=== PATIENT | male | born 1980 | race Caucasian/White ===

== ENCOUNTER 2016-12-17 20:58 | Emergency (ER) | payer MEDICAID ==
[~2016-12-17] VITALS: Ht 188 cm; Wt 97.5 kg
[2016-12-17 21:42] LABS: HEMOGLOBIN 15.4 g/dL (14.1-18.0); LYMPH # 1.3 K/mm3 (0.7-4.5); LYMPH % 13.3 % (10-50)
[2016-12-17 21:44] LABS: URINE BILIRUBIN - DIPSTICK NEGATIVE (NEG); URINE BLOOD NEGATIVE (NEG)
[2016-12-17 21:46] LABS: URINE SQUAMOUS CELLS OCC #/hpf (OCC)
[2016-12-17 22:09] LABS: BUN 9 mg/dL (7-18); GFR (ESTIMATED) 85 ML/MIN (>60)
--- NOTE | 2016-12-17 22:52 | Emergency Room Report ---
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 N Clinical Suspician of Infection? N Mental Status: 1 - Regular (Normal Baseline) Sepsis Risk:Low Sepsis Risk Have you (or family members/close friends) recently traveled outside the [place]? N If Yes, where/when: Have you had exposure to infectious disease within the past month? N TB? Other? Specify: Source patient, RN notes reviewed, family, old records Exam Limitations no limitations Comment pt with lt side flank pain to lt thoracic region intermitt over the last few yrs with acute episode tonight - no fever/hemoptysis/b/b or jt pain and no rash or trauma Cardiac Chest Pain Chest pain indicative of cardiac No Timing/Duration this evening Severity moderate ALLERGIES Coded Allergies: Penicillins (12/17/16) acetaminophen (From TYLENOL) (I-RASH 12/17/16) aspirin (SWELLING OF THROAT 12/17/16) History Medical History General CAD? No Angina: No [place]: No Hypertension? No Hyperlipidemia? No CHF? No DVT? No PE? No COPD? No Asthma? No Anemia? No GERD? No Gastric ulcers? No GI Bleed? No Hernia? No Thyroid Problems? No Hypothyroidism? No CVA? Yes Seizures? No Diabetes? No End Stage Renal Disease? No UTI? No Stones? No BPH? No GB Disease: No Nephritic Syndrome? No Asplenia? No Hepatitis? No Sickle Cell Disease? No Arthritis? No Migraines? No Cataracts? No Glaucoma? No MRSA? No HIV? No TB? No Anxiety? No Depression? No Cancer? No Immunization Hx DT/Tetanus 1-4 Years Ago Surgical Hx Previous Surgery?N Social History Smoking Hx Smoker: Former Smoker Tobacco: No Alcohol Alcohol: No Drugs none Review of Systems All Other Systems Reviewed and Negative Constitutional denies fever Eyes denies drainage ENT denies: ear discharge, epistaxis, throat pain. Respiratory denies cough, denies shortness of breath, denies wheezing Cardiovascular denies chest pain, denies palpitations, denies syncope Gastrointestinal see HPI, denies abdominal pain, nausea, denies vomiting Genitourinary see HPI. denies: dysuria, frequency, hesitancy, hematuria, scrotal/testicular pain. Musculoskeletal denies back pain, denies joint pain, denies joint swelling, denies neck pain Skin denies rash Psychiatric/Neurological denies headache, denies seizure Physical Exam Vital Signs Vital Signs Date Time Temp Pulse Resp B/P Pulse O2 O2 Flow FiO2 Ox Delivery Rate 12/17 2206 97.8 68 18 146/92 96 12/17 2101 98.2 78 20 145/98 97 - WBC >12,000 or <4,000 or 10% bands? 2 or more SIRS Criteria Met? B/P:146/92 MAP:113 Creatinine >2.0? UA output<0.5ml/kg/hr for 2 hrs? Platelet count >100,000? Lactate >2.0mmol/1? INR >1.2 or PTT > than 60 sec? Evidence of Organ Dysfunction? Provider documented clinical suspician of infection? N Sepsis Criteria Count: 1 Sepsis Risk: Low Sepsis Risk General Appearance no apparent distress Eye Exam - bilateral eye PERRL, bilateral eye EOMI Ear, Nose, Throat normal ENT inspection Neck supple Respiratory Status No: respiratory distress. Lung Sounds bilateral: lungs clear. 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 No Results/Orders Laboratory Tests 12/17/162137: Urine Color YELLOW, Urine Appearance CLEAR, Urine pH 6.0, Ur Specific [place] 1.010, Urine Protein NEGATIVE, Urine Ketones NEGATIVE, Urine Blood NEGATIVE, Urine Nitrate NEGATIVE, Urine Bilirubin NEGATIVE, Urine Urobilinogen 0.2, Ur Leukocyte Esterase TRACE H, Urine WBC 5-10, Ur Squamous Epith Cells OCC, Amorphous Sediment TRACE, Urine Glucose NEGATIVE 12/17/162129: ESR Pending 12/17/162129: Sodium 142, Potassium 3.6, Chloride 107, Carbon Dioxide 29, BUN 9, Creatinine 1.0, Estimated Creat Clear 141, Estimated GFR (MDRD) 85, Glucose 132 H, Calcium 9.0, Total Bilirubin 0.7, AST 78 H, ALT 65, Alkaline Phosphatase 103, Creatine Kinase 75, CK-MB (CK-2) Rel Index 0.7, CK and CKMB Interp < 0.5, Troponin I < 0.02, Total Protein 7.6, Albumin 3.9, Globulin 3.7 H, Albumin/Globulin Ratio 1.1, Amylase 49, Lipase 159, WBC 9.5, RBC 4.83, Hgb 15.4, Hct 44.6, MCV 92.4, RDW 12.8, Plt Count 227, MPV 7.5, Gran % 80.1 H, Gran # 7.6, Lymphocytes % 13.3 , Monocytes % 4.2, Eosinophils % 2.1, Basophils % 0.3, Lymphocytes # 1.3, Monocytes # 0.4, Eosinophils # 0.2, Basophils # 0.0, PUBS MCHC 34.5, MCH 31.9 H Current Medication Orders Sig/John Start time Last Medication Dose Route Stop Time Status Admin Sodium Chloride 10 ML PRN PRN 12/17 2114 AC IV 12/18 2110 Orders Procedure Date/time Status DIET-NOTHING BY MOUTH 12/18 B Active SED RATE 12/17 2252 Active ELECTROCARDIOGRAM REQUEST 12/[address] ABD & PELVIS W/O CONTRAST 12/[address] ABD/PELVIS REQ 12/18 2111 Complete CHEST(2 VIEWS-NOT PORTABLE) 12/18 2111 Active IV SALINE LOCK 12/18 2111 Active URINALYSIS/COMPLETE 12/18 2111 Complete LIPASE 12/18 2111 Complete CBC WITH AUTO DIFF 12/18 2111 Complete CARDIAC ENZYMES 12/18 2111 Complete CHEM 12 PROFILE 12/18 2111 Complete AMYLASE 12/18 2111 [facility]17 UNK Active 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 of ischemic chgs XRAY/CT/US XRAY/CT/US 1 CT abdomen, pelvis CT interpretation by discussed w/radiologist Time results known: 2250 CT Results abnormal (see report) XRAY/CT/US 2 XRAY chest XR interpretation by reviewed by me Xray Results normal/NAD Departure Departure Time of Disposition 2250 Disposition DC Home or Self Care(routine) Clinical Impression Primary Impression: Flank pain, acute Secondary Impressions: Pulmonary nodule, left Condition STABLE Patient Instructions DI for Pulmonary Nodule Additional Instructions please see pcp for more tests and eval Discharge Counseling Counseled pt/family regarding diagnosis, test results, follow up needs ED Critical Care Critical Care No at [phone]
--- NOTE | 2016-12-17 22:52 | Emergency Room Report ---
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 N Clinical Suspician of Infection? N Mental Status: 1 - Regular (Normal Baseline) Sepsis Risk:Low Sepsis Risk Have you (or family members/close friends) recently traveled outside the [place]? N If Yes, where/when: Have you had exposure to infectious disease within the past month? N TB? Other? Specify: Source patient, RN notes reviewed, family, old records Exam Limitations no limitations Comment pt with lt side flank pain to lt thoracic region intermitt over the last few yrs with acute episode tonight - no fever/hemoptysis/b/b or jt pain and no rash or trauma Cardiac Chest Pain Chest pain indicative of cardiac No Timing/Duration this evening Severity moderate ALLERGIES Coded Allergies: Penicillins (12/17/16) acetaminophen (From TYLENOL) (I-RASH 12/17/16) aspirin (SWELLING OF THROAT 12/17/16) History Medical History General CAD? No Angina: No [place]: No Hypertension? No Hyperlipidemia? No CHF? No DVT? No PE? No COPD? No Asthma? No Anemia? No GERD? No Gastric ulcers? No GI Bleed? No Hernia? No Thyroid Problems? No Hypothyroidism? No CVA? Yes Seizures? No Diabetes? No End Stage Renal Disease? No UTI? No Stones? No BPH? No GB Disease: No Nephritic Syndrome? No Asplenia? No Hepatitis? No Sickle Cell Disease? No Arthritis? No Migraines? No Cataracts? No Glaucoma? No MRSA? No HIV? No TB? No Anxiety? No Depression? No Cancer? No Immunization Hx DT/Tetanus 1-4 Years Ago Surgical Hx Previous Surgery?N Social History Smoking Hx Smoker: Former Smoker Tobacco: No Alcohol Alcohol: No Drugs none Review of Systems All Other Systems Reviewed and Negative Constitutional denies fever Eyes denies drainage ENT denies: ear discharge, epistaxis, throat pain. Respiratory denies cough, denies shortness of breath, denies wheezing Cardiovascular denies chest pain, denies palpitations, denies syncope Gastrointestinal see HPI, denies abdominal pain, nausea, denies vomiting Genitourinary see HPI. denies: dysuria, frequency, hesitancy, hematuria, scrotal/testicular pain. Musculoskeletal denies back pain, denies joint pain, denies joint swelling, denies neck pain Skin denies rash Psychiatric/Neurological denies headache, denies seizure Physical Exam Vital Signs Vital Signs Date Time Temp Pulse Resp B/P Pulse O2 O2 Flow FiO2 Ox Delivery Rate 12/17 2206 97.8 68 18 146/92 96 12/17 2101 98.2 78 20 145/98 97 - WBC >12,000 or <4,000 or 10% bands? 2 or more SIRS Criteria Met? B/P:146/92 MAP:113 Creatinine >2.0? UA output<0.5ml/kg/hr for 2 hrs? Platelet count >100,000? Lactate >2.0mmol/1? INR >1.2 or PTT > than 60 sec? Evidence of Organ Dysfunction? Provider documented clinical suspician of infection? N Sepsis Criteria Count: 1 Sepsis Risk: Low Sepsis Risk General Appearance no apparent distress Eye Exam - bilateral eye PERRL, bilateral eye EOMI Ear, Nose, Throat normal ENT inspection Neck supple Respiratory Status No: respiratory distress. Lung Sounds bilateral: lungs clear. 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 No Results/Orders Laboratory Tests 12/17/162137: Urine Color YELLOW, Urine Appearance CLEAR, Urine pH 6.0, Ur Specific [place] 1.010, Urine Protein NEGATIVE, Urine Ketones NEGATIVE, Urine Blood NEGATIVE, Urine Nitrate NEGATIVE, Urine Bilirubin NEGATIVE, Urine Urobilinogen 0.2, Ur Leukocyte Esterase TRACE H, Urine WBC 5-10, Ur Squamous Epith Cells OCC, Amorphous Sediment TRACE, Urine Glucose NEGATIVE 12/17/162129: ESR Pending 12/17/162129: Sodium 142, Potassium 3.6, Chloride 107, Carbon Dioxide 29, BUN 9, Creatinine 1.0, Estimated Creat Clear 141, Estimated GFR (MDRD) 85, Glucose 132 H, Calcium 9.0, Total Bilirubin 0.7, AST 78 H, ALT 65, Alkaline Phosphatase 103, Creatine Kinase 75, CK-MB (CK-2) Rel Index 0.7, CK and CKMB Interp < 0.5, Troponin I < 0.02, Total Protein 7.6, Albumin 3.9, Globulin 3.7 H, Albumin/Globulin Ratio 1.1, Amylase 49, Lipase 159, WBC 9.5, RBC 4.83, Hgb 15.4, Hct 44.6, MCV 92.4, RDW 12.8, Plt Count 227, MPV 7.5, Gran % 80.1 H, Gran # 7.6, Lymphocytes % 13.3 , Monocytes % 4.2, Eosinophils % 2.1, Basophils % 0.3, Lymphocytes # 1.3, Monocytes # 0.4, Eosinophils # 0.2, Basophils # 0.0, PUBS MCHC 34.5, MCH 31.9 H Current Medication Orders Sig/John Start time Last Medication Dose Route Stop Time Status Admin Sodium Chloride 10 ML PRN PRN 12/17 2114 AC IV 12/18 2110 Orders Procedure Date/time Status DIET-NOTHING BY MOUTH 12/18 B Active SED RATE 12/17 2252 Active ELECTROCARDIOGRAM REQUEST 12/[address] ABD & PELVIS W/O CONTRAST 12/[address] ABD/PELVIS REQ 12/18 2111 Complete CHEST(2 VIEWS-NOT PORTABLE) 12/18 2111 Active IV SALINE LOCK 12/18 2111 Active URINALYSIS/COMPLETE 12/18 2111 Complete LIPASE 12/18 2111 Complete CBC WITH AUTO DIFF 12/18 2111 Complete CARDIAC ENZYMES 12/18 2111 Complete CHEM 12 PROFILE 12/18 2111 Complete AMYLASE 12/18 2111 Complete [facility]17 UNK Active 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 of ischemic chgs XRAY/CT/US XRAY/CT/US 1 CT abdomen, pelvis CT interpretation by discussed w/radiologist Time results known: 2250 CT Results abnormal (see report) XRAY/CT/US 2 XRAY chest XR interpretation by reviewed by me Xray Results normal/NAD Departure Departure Time of Disposition 2250 Disposition DC Home or Self Care(routine) Clinical Impression Primary Impression: Flank pain, acute Secondary Impressions: Pulmonary nodule, left Condition STABLE Patient Instructions DI for Pulmonary Nodule Additional Instructions please see pcp for more tests and eval Discharge Counseling Counseled pt/family regarding diagnosis, test results, follow up needs ED Critical Care Critical Care No at [phone]
[2016-12-17 23:07] VITALS: BP 136/90
--- NOTE | 2016-12-17 23:59 | RADIOLOGY REPORT PS360 ---
CHEST(2 VIEWS-NOT PORTABLE) HISTORY: C/O LEFT FLANK/CHEST PAIN Patient Age: 36 years: Male Ordering Physician: Chiqui Bradley MD TECHNIQUE: PA and lateral chest COMPARISON :No prior chest films. None available FINDINGS: The lungs are well expanded and clear with nothing definite acute. Borderline cardiomegaly. [place] and mediastinal structures otherwise unremarkable. No pleural effusion. T-spine & ribs intact. IMPRESSION: Lungs clear no active disease
--- NOTE | 2016-12-18 00:13 | RADIOLOGY REPORT PS360 ---
CT ABD PELVIS W/O CONTRAST HISTORY: PAIN Patient Age: 36 years: Male Ordering Physician: Chiqui Bradley MD TECHNIQUE: Helical CT scanning through abdomen and pelvis. No oral nor IV contrast COMPARISON :None available FINDINGS Lung bases. No acute findings.. Heart normal size There is a round Pulmonary nodule anteriorly left upper lobe./At [place] .... This peripheral 7.2 mm noncalcified nodule warrantsFollow-up in CT chest 6-9 months Abdomen Pelvis. Lack of oral and IV contrast decreases sensitivity. Liver, spleen, pancreas and adrenals unremarkable. Gallbladder. Partially contracted no calcified stones. No biliary ductal dilatation. No retroperitoneal adenopathy. Aorta normal caliber. Kidneys. No urinary tract calculi or obstruction. Ureters normal in course and caliber. There appears to be diffuse wall thickening of urinary bladder but this may be exaggerated by its contracted state. Requires correlation with urinalysis. GI Tract. There is generous stool at the rectum and minimal stool throughout the colon with only mild stool at the right colon. No wall thickening. No bowel dilatation or obstruction. Small bowel unremarkable. Appendix normal. Terminal ileum satisfactory. No mesenteric or retroperitoneal adenopathy. At the upper abdomen there is a moderately distended food filled stomach, with likely food filled mildly distended duodenal bulb. Linear undigested material at the distal stomach and duodenum. ... Duodenal loop otherwise unremarkable. Proximal small bowel unremarkable. Osseous. No osseous lesions. Intact. Minor observations included Mild disc space narrowing with scant retrolisthesis and mild disc bulge L3/4 noted. Mild spondylotic bulge L4/5 4/5 with mild foraminal encroachment. IMPRESSION..... 1. No acute findings abdomen or pelvis. No findings to account for the patient's left-sided abdominal pain 2. Food filled mildly distended stomach otherwise unremarkable small bowel & large bowel. Upper normal wall thickness left colon most likely reflecting lack of distention. 3.. Generous wall thickness at the urinary bladder may reflect lack of distention. But Warrants correlation with urinalysis to exclude UTI 4.*Pulmonary nodule anteriorly left upper lobe./[place] warrants follow-up. This peripheral 7.2 mm noncalcified nodule warrantsFollow-up in CT chest 6-9 months.
== END 2016-12-17 23:07 | disposition home or self-care (01) ==
LOC: ER 20:58
PROVIDERS: Emergency Medicine
DX: R10.9 Unspecified abdominal pain (principal); R91.1 Solitary pulmonary nodule; Z87.891 Personal history of nicotine dependence

== ENCOUNTER 2017-02-13 10:16 | Emergency (ER) | payer MEDICAID ==
[~2017-02-13] VITALS: Ht 188 cm; Wt 97.5 kg
[2017-02-13 10:32] LABS: HEMOGLOBIN 15.4 g/dL (14.1-18.0); LYMPH # 1.6 K/mm3 (0.7-4.5); LYMPH % 27.9 % (10-50)
--- NOTE | 2017-02-13 10:45 | Emergency Room Report ---
See Addendum History of Present Illness Time Seen by [id number] Presenting Problem in Triage Pt arrived:Walked Presenting Problem:PT REPORTS MIDSTERNAL CHEST PAIN THAT IS SHARP IN NATURE RADIATING ACROSS CHEST TO L RIB AREA. 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 N Clinical Suspician of Infection? N Mental Status: 1 - Regular (Normal Baseline) Sepsis Risk:Low Sepsis Risk Have you (or family members/close friends) recently traveled outside the [place]? N If Yes, where/when: Have you had exposure to infectious disease within the past month? N TB? Other? Specify: 36 years old white male smoker with no comorbidities, he has no family history of coronary artery disease. 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 He denies being short of breath palpitations nausea vomiting. He was told by his boss to come to the ER and be checked. Source patient, RN notes reviewed Exam Limitations no limitations ALLERGIES Coded Allergies: Penicillins (12/17/16) acetaminophen (From TYLENOL) (I-RASH 12/17/16) aspirin (SWELLING OF THROAT 12/17/16) Home Medications Reported Medications No Known Home Medications History Medical History General CAD? No Angina: No [place]: No Hypertension? No Hyperlipidemia? No CHF? No DVT? No PE? No COPD? No Asthma? No Anemia? No GERD? No Gastric ulcers? No GI Bleed? No Hernia? No Thyroid Problems? No Hypothyroidism? No CVA? Yes Seizures? No Diabetes? No End Stage Renal Disease? No UTI? No Stones? No BPH? No GB Disease: No Nephritic Syndrome? No Asplenia? No Hepatitis? No Sickle Cell Disease? No Arthritis? No Migraines? No Cataracts? No Glaucoma? No MRSA? No HIV? No TB? No Anxiety? No Depression? No Cancer? No More? No Immunization Hx DT/Tetanus 1-4 Years Ago Surgical Hx Previous Surgery?N Social History Smoking Hx Smoker: Current Every Day Smoker Tobacco: Yes Type Cigarettes Alcohol Alcohol: No Review of Systems All Other Systems Reviewed and Negative Constitutional no symptoms reported Eyes no symptoms reported ENT no symptoms reported. Respiratory no symptoms reported Cardiovascular see HPI, chest pain Gastrointestinal no symptoms reported Genitourinary no symptoms reported. Musculoskeletal see HPI, muscle pain (below the LEFT shoulder blade) Skin no symptoms reported Psychiatric/Neurological no symptoms reported Physical Exam Vital Signs Vital Signs Date Time Temp Pulse Resp B/P Pulse O2 O2 Flow FiO2 Ox Delivery Rate 02/13 1219 64 14 143/90 95 02/13 1109 59 14 130/93 95 02/13 1017 97.6 64 18 126/93 96 - WBC >12,000 or <4,000 or 10% bands? 2 or more SIRS Criteria Met? B/P:126/93 MAP:104 Creatinine >2.0? UA output<0.5ml/kg/hr for 2 hrs? Platelet count >100,000? Lactate >2.0mmol/1? INR >1.2 or PTT > than 60 sec? Evidence of Organ Dysfunction? Provider documented clinical suspician of infection? N Sepsis Criteria Count: 0 Sepsis Risk: Low Sepsis Risk General Appearance normal appearance, WD/WN, no apparent distress Eye Exam - bilateral eye normal exam, bilateral eye PERRL, bilateral eye EOMI Ear, Nose, Throat hearing grossly normal, normal ENT inspection Neck normal inspection, non-tender, supple, full range of motion Respiratory Status No: tender on palpation (on the LEFT costochondral junc). Lung Sounds bilateral: normal breath sounds, lungs clear. 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 No Results/Orders Laboratory Tests 02/13/17 1138: Troponin I < 0.02 02/13/17 1025: B-Natriuretic Peptide < 5 02/13/17 1025: Sodium 140, Potassium 3.9, Chloride 106, Carbon Dioxide 27, BUN 12, Creatinine 1.0, Estimated Creat Clear 141, Estimated GFR (MDRD) 85, Glucose 92, Calcium 9.0 , Total Bilirubin 0.8, AST 50 H, ALT 74, Alkaline Phosphatase 105, Creatine Kinase 119, CK-MB (CK-2) Rel Index 1.0, CK and CKMB Interp 1.2, Troponin I < 0.02, Total Protein 7.6, Albumin 4.1, Globulin 3.5 H, Albumin/Globulin Ratio 1.2, D-Dimer < 100, WBC 5.6, RBC 4.93, Hgb 15.4, Hct 46.3, MCV 93.9, RDW 12.7, Plt Count 224, MPV 8.1, Gran % 62.1, Gran # 3.5, Lymphocytes % 27.9, Monocytes % 5.6, Eosinophils % 3.9, Basophils % 0.5, Lymphocytes # 1.6, Monocytes # 0.3, Eosinophils # 0.2, Basophils # 0.0, PUBS MCHC 33.3, MCH 31.2 Current Medication Orders Sig/John Start time Last Medication Dose Route Stop Time Status Admin Methocarbamol 0 .STK-MED ONE 02/13 1053 DC PO Methocarbamol 500 MG ONCE ONE 02/13 1045 DC 02/13 PO 02/13 1046 1054 Sodium Chloride 10 ML PRN PRN 02/13 1030 AC IV 02/14 1017 Orders Procedure Date/time Status TROPONIN I 02/13 1124 Complete D-DIMER 02/13 1044 Complete BRAIN NATRIURETIC PEPTIDE 02/13 1044 Complete ELECTROCARDIOGRAM REQUEST 02/13 1017 Active CHEST(2 VIEWS-NOT PORTABLE) 02/13 1017 Active IV SALINE LOCK 02/13 1017 Active 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 of ischemic chgs, no ectopy, normal QRS, normal [place], normal EKG Comments Normal sinus rhythm 65/m normal P-wave QRS T waves no acute findings XRAY/CT/US XRAY/CT/US XRAY chest XR interpretation by reviewed by me Xray Results normal/NAD, no infiltrates Comment NAD. Departure Departure Time of Disposition 1145 Disposition Still a Patient Clinical Impression Primary Impression: Tobacco use Secondary Impressions: Chest pain Condition STABLE Referrals Robb Adair MD Additional Instructions 1130 The Patietn had negative cardiac enzymes and dimer but he continued to have pain, he was unable to take aspirin due to his prior allergy. I called Dr Baumann for admission and he requested Dr Adair to evaluate prior to the admission. [address] Adair and notified him. 1215 after second negative troponin and discussin with the cardiology seflf it was felt that this a musculoskeletal pain and safe to discharge with an out patient stress test. I discussed with Dr Baumann and he will follow up in the office. The patient he will follow up with cardiology service on 01/15/17 at 2: 15 Discharge Counseling Counseled pt/family regarding diagnosis, test results, medications/RX, home care, follow up needs Prescriptions Current Visit Scripts Methocarbamol (Robaxin 750MG) 750 MG PO Q8HP PRN muscle pain #15 TAB ED Critical Care Critical Care No If Critical Care minutes are documented, the time involved in the performance of seperately reportable procedures was not counted toward critical care time documented. I directly delivered medical care to this critically ill and/or injured patient. Timely evaluation and treatment was necessary to address the significant organ system(s) dysfunction present in this patient. Comments The patient continued to have chest pain, his cardiac enzymes were negative and his dimer as well. I repeated a second troponin. Will schedule the patient with Dr. Adair for an outpatient stress test. at [id number]
[2017-02-13 10:57] LABS: BUN 12 mg/dL (7-18); GFR (ESTIMATED) 85 ML/MIN (>60)
--- OUTSIDE RECORDS SUMMARY | 2017-02-13 11:03 | External Medical Summary Rpt | CCD ---
Author Author , BUCK JANE Address Unknown Phone [email or web address] Purpose Continuity of Care Document - 10-16-2010 through 2016 Problems Code Diagnosis DOS Provider Status S61.012A LACERATION 02-06-2017 WITHOUT FOREIGN BODY OF LEFT THUMB WITHOUT DAMAGE TO NAIL, INITIAL ENCOUNTER W26.9XXA CONTACT 02-06-2017 WITH UNSPECIFIED SHARP OBJECT(S), INITIAL ENCOUNTER Y92.009 UNSPECIFIED 02-06-2017 PLACE IN UNSPECIFIED NON-INSTIT [facility]IVATE[facility] RESIDENCE THE PLACE OF OCCURRENCE OF THE EXTERNAL CAUSE Z88.8 ALLERGY 02-06-2017 STATUS TO OTHER DRUGS, MEDICAMENTS AND BIOLOGICAL SUBSTANCES STATUS F17.210 NICOTINE 09-26-2016 DEPENDENCE, CIGARETTES, UNCOMPLICAT ED R10.11 RIGHT UPPER 09-26-2016 QUADRANT PAIN R10.84 GENERALIZED 09-26-2016 ABDOMINAL PAIN Z88.6 ALLERGY 09-26-2016 STATUS TO ANALGESIC AGENT STATUS R00.0 TACHYCARDIA 06-09-2016 , UNSPECIFIED R42 DIZZINESS 06-09-2016 AND GIDDINESS Z72.0 TOBACCO USE 06-09-2016 R10.9 UNSPECIFIED ABDOMINAL PAIN R91.1 SOLITARY PULMONARY NODULE Results Labs Lab Lab Date Result Refere Interp Status Commen Order Detail nces retati t Range on Urinalysis dipstick W Reflex Microscopic panel in Urine (12-17-2016 21:38) Amorpho TRACE NONE complet us 017 ed sedimen 21:38 t [Presen ce] in Urine sedimen t by Light microsc opy Epithel OCC OCC complet ial 017 ed cells.s 21:38 quamous [Presen ce] in Urine sedimen t by Microsc opy high power field Leukocy 5-10 O complet adolfo 017 wbc/hpf ed [#/volu 21:38 me] in Urine Urinalysis dipstick W Reflex Microscopic panel in Urine (12-17-2016 21:38) Appeara CLEAR CLEAR complet nce of 017 ed Urine 21:38 Bilirub NEGATIV NEG complet in 017 E ed [Presen 21:38 ce] in Urine by Test strip Erythro NEGATIV NEG complet cytes 017 E ed [Presen 21:38 ce] in Urine Color YELLOW YELLOW complet of 017 ed Urine 21:38 Ketones NEGATIV NEG complet 017 E ed [Presen 21:38 ce] in Urine by Automat ed test strip Mucus TRACE NEG Abnorma complet [Presen 017 l ed ce] in 21:38 Urine sedimen t by Light microsc opy Nitrite NEGATIV NEG complet 017 E ed [Presen 21:38 ce] in Urine by Test strip Urobili 0.2 NEG complet nogen 017 ed [Presen 21:38 ce] in Urine by Test strip Fibrin D-dimer DDU (07-24-2012 10:51) Fibrin < 150 <230 Normal complet D-dimer 013 ng/ml ed DDU 10:51 Comment: THIS TEST FOR D-DIMER IS AN AUTOMATED LATEX ENHANCED Comment: IMMUNOASSAY FOR THE QUANTITATIVE DETERMINATION OF THE Comment: D-DIMER IN HUMAN CITRATED PLASMA. THE HIGH SENSITIVITY TEST Comment: ALSO ELIMINATES FALSE POSITIVES DUE TO RHEUMATOID FACTOR. Comment: IF THE D-DIMER RESULTS IS USED TO EVALUATE DVT OR PE, THE Comment: RECOMMENDED CUTOFF VALUE (NEGATIVE PREDICTIVE VALUE) IS LESS Comment: THAN 230 NG/ML. THE D-DIMER RESULTS SHOULD NOT BE USED Comment: ALONE TO RULE IN DVT/PE, BUT SHOULD BE USED IN CONJUNCTION Comment: WITH A CLINICAL PRETEST PROBABILITY (PTP) ASSESSMENT MODEL Comment: TO EXCLUDE VENOUS THROMBOEMBOLISM (VTE)IN OUTPATIENTS Comment: SUSPECTED OF DEEP VENOUS THROMBOSIS (DVT) AND PULMONARY Comment: EMBOLISM (PE). Comment: IF THE D-DIMER RESULT IS USED TO EVALUATE DIC, THE UPPER Comment: LIMIT OF NORMAL RANGE IS 230 NG/ML. IN PATIENTS WITH Comment: SUSPECTED DIC, THE D-DIMER RESULT IS USUALLY MARKEDLY Comment: ELEVATED AND SHOULD BE USED IN CONJUNCTION WITH OTHER TESTS Comment: SUCH PT, APTT, AND PLATELET COUNT. Fibrin D-dimer DDU [Mass/volume] in Platelet poor plasma by Immunoassay (07-24-2012 10:51) Fibrin 04-24-2 < 150 <230 Normal complet D-dimer 013 ed DDU 10:51 [Mass/v olume] in Platele t poor plasma by Immunoa ssay CBC W Reflex Manual Differential panel (07-24-2012 10:14) Monocyt -24-2 8.0 % INTERP Normal complet es/100 013 ed leukocy 10:14 adolfo Lymphoc 24-2 23.3 % INTERP Normal complet ytes/10 013 ed 0 10:14 leukocy adolfo Neutrop 24-2 66.2 % INTERP Normal complet hils/10 013 ed 0 10:14 leukocy adolfo Platele 24-2 10.1 fl 9.2-12. Normal complet t mean 013 6 ed volume 10:14 Platele 24-2 251 x10 130-400 Normal complet ts 013 3/uL ed 10:14 Erythro 24-2 13.4 % 11.5-15 Normal complet cyte 013 .5 ed distrib 10:14 ution width Erythro 24-2 33.3 32-36 Normal complet cyte 013 g/dL ed mean 10:14 corpusc ular hemoglo bin concent rat Erythro 24-2 30.9 pg 27-31 Normal complet cyte 013 ed mean 10:14 corpusc ular hemoglo bin Erythro 24-2 92.8 fl 80-94 Normal complet cyte 013 ed mean 10:14 corpusc ular volume Hematoc 24-2 48.0 % 42-52 Normal complet rit 013 ed 10:14 Hemoglo -24-2 16.0 14.0-18 Normal complet bin 013 g/dL .0 ed 10:14 Erythro -24-2 5.17 4.70-6. Normal complet cytes 013 x10 10 ed 10:14 6/uL Leukocy -24-2 6.3 x10 4.8-10. Normal complet adolfo 013 3/uL 8 ed 10:14 Granulo -24-2 0.02 Normal complet cytes.i 013 x10 ed mmature 10:14 3/uL Basophi -24-2 0.02 0-0.1 Normal complet ls 013 x10 ed 10:14 3/uL Eosinop -24-2 0.12 0-0.4 Normal complet hils 013 x10 ed 10:14 3/uL Monocyt 24-2 0.51 0.3-1.0 Normal complet es 013 x10 ed 10:14 3/uL Lymphoc 24-2 1.48 1.3-2.9 Normal complet ytes 013 x10 ed 10:14 3/uL Neutrop 24-2 4.19 2.2-4.8 Normal complet hils 013 x10 ed 10:14 3/uL Granulo 24-2 0.3 % INTERP Normal complet cytes.i 013 ed mmature 10:14 /100 leukocy adolfo Basophi 24-2 0.3 % INTERP Normal complet ls/100 013 ed leukocy 10:14 adolfo Eosinop 24-2 1.9 % INTERP Normal complet hils/10 013 ed 0 10:14 leukocy adolfo Comprehensive metabolic 2000 panel in Serum or Plasma (07-24-2012 10:14) Glucose 24-2 99 70mg/ Normal complet 013 dL - ed [Mass/v 10:14 110mg olume] /dL in Serum or Plasma Urea 2 11 7mg/d Normal complet nitroge 013 l - ed n 10:14 18mg/ [Mass/v dl olume] in Serum or Plasma Sodium 2 143 136mE Normal complet [Moles/ 013 q/L - ed volume] 10:14 145mE in q/L Serum or Plasma Potassi 07-24-2 4.0 3.5mE Normal complet um 013 q/L - ed [Moles/ 10:14 5.1mE volume] q/L in Serum or Plasma Chlorid 2 105 98mEq Normal complet e 013 /L - ed [Moles/ 10:14 107mE volume] q/L in Serum or Plasma Carbon 07-24-2 29 21mEq Normal complet dioxide 013 /L - ed , total 10:14 32mEq /L [Moles/ volume] in Serum or Plasma Creatin 07-24-2 1.11 0.8mg Normal complet ine 013 /dl - ed [Mass/v 10:14 1.3mg olume] /dl in Serum or Plasma GLOMERU 2 > 60.00 Normal complet LAR 013 ed FILTRAT 10:14 ION RATE EST ANION 13.0 8.0mE Normal complet GAP 013 q/L - ed 10:14 20.0m Eq/L Osmolal 284 275mm Normal complet ity of 013 ol/kg - ed Serum 10:14 or 305mm Plasma ol/kg by calcula tion Calcium 9.6 8.7mg Normal complet /dL - ed [Mass/v 10:14 10.2m olume] g/dL in Serum or Plasma Protein 8.4 6.4gm High complet 013 /dL - ed [Mass/v 10:14 8.2gm olume] /dL in Serum or Plasma Albumin 4.4 3.4gm Normal complet 013 /dL - ed [Mass/v 10:14 5.0gm olume] /dL in Serum or Plasma Bilirub 0.59 0mg/d Normal complet in.tota 013 L - ed l 10:14 1.5mg [Mass/v /dL olume] in Serum or Plasma Asparta 29 15U/L Normal complet te - ed aminotr 10:14 37U/L ansfera se [Enzyma tic activit y/volum e] in Serum or Plasma Alanine 43 12U/L Normal complet - ed aminotr 10:14 78U/L ansfera se [Enzyma tic activit y/volum e] in Serum or Plasma Alkalin 109 50U/L Normal complet e - ed phospha 10:14 136U/ tase L [Enzyma tic activit y/volum e] in Serum or Plasma Creatine kinase.MB [Mass/volume] in Serum or Plasma (07-24-2012 10:14) Creatin 1.6 0ng/m Normal complet e 013 L - ed kinase. 10:14 4ng/m MB L [Mass/v olume] in Serum or Plasma CBC W Reflex Manual Differential panel in Blood (07-24-2012 10:14) Leukocy 6.3 4.8x1 Normal complet adolfo 013 0_3/uL ed [#/volu 10:14 - me] in 10.8x Blood 10_3/uL by Automat ed count Erythro 5.17 4.70x Normal complet cytes 013 10_6/uL ed [#/volu 10:14 - me] in 6.10x Blood 10_6/uL by Automat ed count Hemoglo 16.0 14.0g Normal complet bin 013 /dL - ed [Mass/v 10:14 18.0g olume] /dL in Blood Hematoc 48.0 42% - Normal complet rit 013 52% ed [Volume 10:14 Fractio n] of Blood by Automat ed count Erythro 92.8 80fl Normal complet cyte 013 - ed mean 10:14 94fl corpusc ular volume [Entiti c volume] by Automat ed count Erythro 30.9 27pg Normal complet cyte 013 - ed mean 10:14 31pg corpusc ular hemoglo bin [Entiti c mass] by Automat ed count Erythro 33.3 32g/d Normal complet cyte 013 L - ed mean 10:14 36g/d corpusc L ular hemoglo bin concent ration [Mass/v olume] by Automat ed count Erythro 13.4 11.5% Normal complet cyte 013 - ed distrib 10:14 15.5% ution width [Ratio] by Automat ed count Platele 251 130x1 Normal complet ts 013 0_3/uL ed [#/volu 10:14 - me] in 400x1 Blood 0_3/uL by Automat ed count Platele 10.1 9.2fl Normal complet t mean 013 - ed volume 10:14 12.6f [Entiti l c volume] in Blood by Automat ed count Neutrop 66.2 INTERP Normal complet hils/10 013 ed 0 10:14 leukocy adolfo in Blood by Automat ed count Lymphoc 23.3 INTERP Normal complet ytes/10 013 ed 0 10:14 leukocy adolfo in Blood by Automat ed count Monocyt 8.0 INTERP Normal complet es/100 013 ed leukocy 10:14 adolfo in Blood by Automat ed count Eosinop 1.9 INTERP Normal complet hils/10 013 ed 0 10:14 leukocy adolfo in Blood by Automat ed count Basophi 0.3 INTERP Normal complet ls/100 013 ed leukocy 10:14 adolfo in Blood by Automat ed count Granulo 0.3 INTERP Normal complet cytes.i 013 ed mmature 10:14 /100 leukocy adolfo Neutrop 4.19 2.2x1 Normal complet hils 013 0_3/uL ed [#/volu 10:14 - me] in 4.8x1 Blood 0_3/uL by Automat ed count Lymphoc 1.48 1.3x1 Normal complet ytes 013 0_3/uL ed [#/volu 10:14 - me] in 2.9x1 Blood 0_3/uL by Automat ed count Monocyt 0.51 0.3x1 Normal complet es 013 0_3/uL ed [#/volu 10:14 - me] in 1.0x1 Blood 0_3/uL by Automat ed count Eosinop 0.12 0x10_ Normal complet hils 013 3/uL - ed [#/volu 10:14 0.4x1 me] in 0_3/uL Blood by Automat ed count Basophi 0.02 0x10_ Normal complet ls 013 3/uL - ed [#/volu 10:14 0.1x1 me] in 0_3/uL Blood by Automat ed count Granulo 0.02 Normal complet cytes.i 013 ed mmature 10:14 Reagin Ab [Presence] in Unspecified specimen by VDRL (03-06-2011 08:00) Reagin NON-SANDY complet Ab 011 CTIVE ed [Presen 08:00 ce] in Unspeci fied specime n by VDRL Reagin Ab [Presence] in Unspecified specimen by VDRL (03-06-2011 08:00) COLLECT N/A complet OR 011 ed 08:00 ETHNICI W complet TY 011 ed 08:00 PURPOSE ROUTINE complet OF 011 ed EXAM 08:00 SPECIME BLOOD complet N 011 ed SOURCE 08:00 CHART 12-05-2 [id number] complet NUMBER 011 ed 08:00 Reagin Pending complet Ab 011 ed [Presen 08:00 ce] in Unspeci fied specime n by VDRL
--- OUTSIDE RECORDS SUMMARY | 2017-02-13 11:03 | External Medical Summary Rpt | CCD ---
Demographics Preferred Language Uzbek Marital Status Unknown Yarsanism Affiliation Unknown Race Unknown Ethnic Group Unknown Author Author , BUCK JANE Address Unknown Phone Immunization No patient found.
--- OUTSIDE RECORDS SUMMARY | 2017-02-13 11:03 | External Medical Summary Rpt | CCD ---
Author Author [employer] Organization [employer] Address Unknown Phone Unavailable Purpose Continuity of Care Document - through 2016
--- OUTSIDE RECORDS SUMMARY | 2017-02-13 11:03 | External Medical Summary Rpt | CCD ---
Author Author , BUCK JANE Address Unknown Phone [email or web address] Purpose Continuity of Care Document - 10-16-2010 through 2016 Problems Code Diagnosis DOS Provider Status S61.012A LACERATION 02-06-2017 WITHOUT FOREIGN BODY OF LEFT THUMB WITHOUT DAMAGE TO NAIL, INITIAL ENCOUNTER W26.9XXA CONTACT 02-06-2017 WITH UNSPECIFIED SHARP OBJECT(S), INITIAL ENCOUNTER Y92.009 UNSPECIFIED 02-06-2017 PLACE IN UNSPECIFIED NON-INSTIT [facility] ([facility] RESIDENCE THE PLACE OF OCCURRENCE OF [...] N 011 ed SOURCE 08:00 CHART 12-05-2 [id number] complet NUMBER 011 ed 08:00 Reagin Pending complet Ab 011 ed [Presen 08:00 ce] in Unspeci fied specime n by VDRL
--- OUTSIDE RECORDS SUMMARY | 2017-02-13 11:03 | External Medical Summary Rpt | CCD ---
Demographics Preferred Language Hungarian Marital Status Unknown Cheondoism Affiliation Unknown Race Unknown Ethnic Group Unknown Author Author , BUCK JANE Address Unknown Phone Immunization No patient found.
--- OUTSIDE RECORDS SUMMARY | 2017-02-13 11:04 | External Medical Summary Rpt ---
Author Author BUCK Villarreal, BUCK [employer] Organization [employer] Address Unknown Phone Unavailable Payers Section Payer Plan Name Group ID Member ID Coverage Coverage Start End Date Date SELF PAY SELF No No No INSURANCE informati informati informati on in on in on in source source source data data data Results CBC W Auto Differential panel in Blood Observa Value Referen Units Interpr Notes Date tion ce etation Range Basophils 0 - 0.2 K/MM3 Normal No Feb 132016 [#/volume on in 10:25 AM ] in source Blood by data Automated count Basophils 0.1 - 2.0 % Normal No Feb 13 /2016 leukocyte on in 10:25 AM s in source Blood by data Automated count Eosinophi 0.0 - 0.4 K/mm3 Normal No Feb 13 ls 2016 [#/volume on in 10:25 AM ] in source Blood by data Automated count Eosinophi 0.1 - % Normal No Feb 13 ls/100 12.0 inform2016 leukocyte on in 10:25 AM s in source Blood by data Automated count Granulocy 1.3 - 8.0 K/mm3 Normal No Feb 13 mahesh 2016 [#/volume on in 10:25 AM ] in source Blood by data Automated count Granulocy 37.0 - % Normal No Feb 13 mahesh/100 80.0 2016 leukocyte on in 10:25 AM s in source Blood by data Automated count Hematocri 42.0 - % Normal No Feb 13 t [Volume 52.0 2016 on in 10:25 AM Fraction] source of Blood data Hemoglobi 14.1 - g/dL Normal No Feb 13 n 18.0 inform2016 [Mass/vol on in 10:25 AM ume] in source Blood data Lymphocyt 0.7 - 4.5 K/mm3 Normal No Feb 13 es 2016 [#/volume on in 10:25 AM ] in source Unspecifi data ed specimen by Automated count Lymphocyt 10 - 50 % Normal No Feb 13 es inform2016 [#/volume on in 10:25 AM ] in source Unspecifi data ed specimen by Automated count Erythrocy 27 - 31.2 pg Normal No Feb 13 te mean 2016 corpuscul on in 10:25 AM ar source hemoglobi data n [Entitic mass] Erythrocy 31.8 - g/dl Normal No Feb 13 te mean 35.4 2016 corpuscul on in 10:25 AM ar source hemoglobi data n concentra tion [Mass/vol ume] by Automated count Erythrocy 82.2 - fl Normal No Feb 13 te mean 97.8 2016 corpuscul on in 10:25 AM ar volume source [Entitic data volume] by Automated count Monocytes 0.1 - 1.0 K/mm3 Normal No Feb 132016 [#/volume on in 10:25 AM ] in source Blood by data Automated count Monocytes 1.7 - 9.3 % Normal No Feb 13 /100 2016 leukocyte on in 10:25 AM s in source Blood by data Automated count Platelet 7.4 - fl Normal No Feb 13 mean 10.4 2016 volume on in 10:25 AM [Entitic source volume] data in Blood by Automated count Platelets 142 - 424 K/mm3 Normal No Feb 132016 [#/volume on in 10:25 AM ] in source Blood data Erythrocy 4.6 - 6.2 M/mm3 Normal No Feb 13 mahesh 2016 [#/volume on in 10:25 AM ] in source Amniotic data fluid Erythrocy 11.5 - % Normal No Feb 13 te 17.5 2016 distribut on in 10:25 AM ion width source [Entitic data volume] by Automated count Leukocyte 4.8 - K/MM3 Normal No Feb 13 s 10.8 2016 [#/volume on in 10:25 AM ] in source Blood data Urinalysis dipstick W Reflex Microscopic panel in Urine Observa Value Referen Units Interpr Notes Date tion ce etation Range Appeara CLEAR CLEAR No No No Dec 17 nce of informa informa informa 2017 Urine tion in tion in tion in 9:38 PM source source source data data data Amorpho TRACE NONE No No No Dec 17 us informa informa informa 2017 sedimen tion in tion in tion in 9:38 PM t source source source [Presen data data data ce] in Urine sedimen t by Light microsc opy Bilirub NEGATIV NEG No No No Sep 17 in E informa informa informa 2016 [Presen tion in tion in tion in 9:38 PM ce] in source source source Urine data data data by Test strip Erythro NEGATIV NEG No No No Sep 17 cytes E informa informa informa 2016 [Presen tion in tion in tion in 9:38 PM ce] in source source source Urine data data data Color YELLOW YELLOW No No No Sep 17 of informa informa informa 2017 Urine tion in tion in tion in 9:38 PM source source source data data data Glucose NEG No No No Sep 17 [Mass/vol informati informati informati 2017 9:38 ume] in on in on in on in PM Urine by source source source Test data data data strip Ketones NEGATIV NEG mg/dL No No Sep 17 E informa informa 2016 [Presen tion in tion in 9:38 PM ce] in source source Urine data data by Automat ed test strip Mucus TRACE NEG No Abnorma No Sep 17 [Presen informa l informa 2016 ce] in tion in tion in 9:38 PM Urine source source sedimen data data t by Light microsc opy Nitrite NEGATIV NEG No No No Sep 17 E informa informa informa 2016 [Presen tion in tion in tion in 9:38 PM ce] in source source source Urine data data data by Test strip pH of 5.0 - 8.5 No Normal No Sep 17 Urine informati informati 2017 9:38 on in on in PM source source data data Protein NEG mg/dL No No Sep 17 [Mass/vol informati informati 2017 9:38 ume] in on in on in PM Urine by source source Automated data data test strip Specific 1.005 - No Normal No Sep 17 gravity 1.030 informati informati 2017 9:38 of Urine on in on in PM source source data data Epithel OCC OCC #/hpf No No Sep 17 ial informa informa 2017 cells.s tion in tion in 9:38 PM quamous source source data data [Presen ce] in Urine sedimen t by Microsc opy high power field Urobili 0.2 NEG E.U./dL No No Sep 17 nogen informa informa 2017 [Presen tion in tion in 9:38 PM ce] in source source Urine data data by Test strip Leukocy [5 O wbc/hpf No No Sep 17 mahesh wbc/hpf informa informa 2016 [#/volu ; 10 tion in tion in 9:38 PM me] in wbc/hpf source source Urine ] data data Urinalysis dipstick W Reflex Microscopic panel in Urine Observa Value Referen Units Interpr Notes Date tion ce etation Range Appeara CLEAR CLEAR No No No Sep 17 nce of informa informa informa 2017 Urine tion in tion in tion in 9:38 PM source source source data data data Bilirub NEGATIV NEG No No No Sep 17 in E informa informa informa 2016 [Presen tion in tion in tion in 9:38 PM ce] in source source source Urine data data data by Test strip Erythro NEGATIV NEG No No No Sep 17 cytes E informa informa informa 2016 [Presen tion in tion in tion in 9:38 PM ce] in source source source Urine data data data Color YELLOW YELLOW No No No Sep 17 of informa informa informa 2017 Urine tion in tion in tion in 9:38 PM source source source data data data Glucose NEG No No No Sep 17 [Mass/vol informati informati informati 2017 9:38 ume] in on in on in on in PM Urine by source source source Test data data data strip Ketones NEGATIV NEG mg/dL No No Sep 17 E informa informa 2016 [Presen tion in tion in 9:38 PM ce] in source source Urine data data by Automat ed test strip Mucus TRACE NEG No Abnorma No Sep 17 [Presen informa l informa 2016 ce] in tion in tion in 9:38 PM Urine source source sedimen data data t by Light microsc opy Nitrite NEGATIV NEG No No No Sep 17 E informa informa informa 2016 [Presen tion in tion in tion in 9:38 PM ce] in source source source Urine data data data by Test strip pH of 5.0 - 8.5 No Normal No Sep 17 Urine informati informati 2017 9:38 on in on in PM source source data data Protein NEG mg/dL No No Sep 17 [Mass/vol informati informati 2017 9:38 ume] in on in on in PM Urine by source source Automated data data test strip Specific 1.005 - No Normal No Sep 17 gravity 1.030 informati informati 2017 9:38 of Urine on in on in PM source source data data Urobili 0.2 NEG E.U./dL No No Sep 17 nogen informa informa 2016 [Presen tion in tion in 9:38 PM ce] in source source Urine data data by Test strip Erythrocyte sedimentation rate by Westergren method Observa Value Referen Units Interpr Notes Date tion ce etation Range Erythrocy 0 - 15 mm/hr High No Sep 17 te informati 2017 9:30 sedimenta on in PM tion rate source by data Westergre n method CBC W Auto Differential panel in Blood Observa Value Referen Units Interpr Notes Date tion ce etation Range Basophils 0 - 0.2 K/MM3 Normal No Sep 17 informati 2017 9:30 [#/volume on in PM ] in source Blood by data Automated count Basophils 0.1 - 2.0 % Normal No Sep 17 /100 informati 2017 9:30 leukocyte on in PM s in source Blood by data Automated count Eosinophi 0.0 - 0.4 K/mm3 Normal No Sep 17 ls informati 2017 9:30 [#/volume on in PM ] in source Blood by data Automated count Eosinophi 0.1 - % Normal No Sep 17 ls/100 12.0 informati 2017 9:30 leukocyte on in PM s in source Blood by data Automated count Granulocy 1.3 - 8.0 K/mm3 Normal No Sep 17 mahesh informati 2017 9:30 [#/volume on in PM ] in source Blood by data Automated count Granulocy 37.0 - % High No Sep 17 mahesh/100 80.0 informati 2016 9:30 leukocyte on in PM s in source Blood by data Automated count Hematocri 42.0 - % Normal No Sep 17 t [Volume 52.0 informati 2016 9:30 on in PM Fraction] source of Blood data Hemoglobi 14.1 - g/dL Normal No Sep 17 n 18.0 informati 2016 9:30 [Mass/vol on in PM ume] in source Blood data Lymphocyt 0.7 - 4.5 K/mm3 Normal No Sep 17 es informati 2017 9:30 [#/volume on in PM ] in source Unspecifi data ed specimen by Automated count Lymphocyt 10 - 50 % Normal No Sep 17 es informati 2016 9:30 [#/volume on in PM ] in source Unspecifi data ed specimen by Automated count Erythrocy 27 - 31.2 pg High No Sep 17 te mean informati 2016 9:30 corpuscul on in PM ar source hemoglobi data n [Entitic mass] Erythrocy 31.8 - g/dl Normal No Sep 17 te mean 35.4 informati 2016 9:30 corpuscul on in PM ar source hemoglobi data n concentra tion [Mass/vol ume] by Automated count Erythrocy 82.2 - fl Normal No Sep 17 te mean 97.8 informati 2016 9:30 corpuscul on in PM ar volume source [Entitic data volume] by Automated count Monocytes 0.1 - 1.0 K/mm3 Normal No Sep 17 informati 2016 9:30 [#/volume on in PM ] in source Blood by data Automated count Monocytes 1.7 - 9.3 % Normal No Sep 17 /100 informati 2017 9:30 leukocyte on in PM s in source Blood by data Automated count Platelet 7.4 - fl Normal No Sep 17 mean 10.4 informati 2016 9:30 volume on in PM [Entitic source volume] data in Blood by Automated count Platelets 142 - 424 K/mm3 Normal No Sep 17 informati 2016 9:30 [#/volume on in PM ] in source Blood data Erythrocy 4.6 - 6.2 M/mm3 Normal No Sep 17 mahesh informati 2016 9:30 [#/volume on in PM ] in source Amniotic data fluid Erythrocy 11.5 - % Normal No Sep 17 te 17.5 informati 2016 9:30 distribut on in PM ion width source [Entitic data volume] by Automated count Leukocyte 4.8 - K/MM3 Normal No Sep 17 s 10.8 informati 2016 9:30 [#/volume on in PM ] in source Blood data Fibrin D-dimer DDU [Mass/volume] in Platelet poor plasma by Immunoassay Observa Value Referen Units Interpr Notes Date tion ce etation Range Fibrin < 150 <230 ng/ml Normal THIS Jul 24 D-dimer TEST 2012 DDU FOR 10:51 [Mass/v D-DIMER AM olume] IS AN in AUTOMAT Platele ED t poor LATEX plasma ENHANCE by DIMMUNO Immunoa ASSAY ssay FOR THE QUANTIT ATIVE DETERMI NATION OF THED-DI HALIE IN HUMAN CITRATE D PLASMA. THE HIGH SENSITI VITY TESTALS O ELIMINA MAHESH FALSE POSITIV ES DUE TO RHEUMAT OID FACTOR. IF THE D-DIMER RESULTS IS USED TO EVALUAT E DVT OR PE, THERECO MMENDED CUTOFF VALUE (NEGATI VE PREDICT FRANCOIS VALUE) IS LESSTHA N 230 NG/ML. THE D-DIMER RESULTS SHOULD NOT BE USEDALO NE TO RULE IN DVT/PE, BUT SHOULD BE USED IN CONJUNC TIONWIT H A CLINICA L PRETEST PROBABI LITY (PTP) ASSESSM ENT MODELTO EXCLUDE VENOUS THROMBO EMBOLIS M (VTE)IN OUTPATI ENTSSUS PECTED OF DEEP VENOUS THROMBO SIS (DVT) AND PULMONA RYEMBOL ISM (PE).IF THE D-DIMER RESULT IS USED TO EVALUAT E DIC, THE UPPERLI LOU OF NORMAL RANGE IS 230 NG/ML. IN PATIENT S WITHSUS PECTED DIC, THE D-DIMER RESULT IS USUALLY MARKEDL YELEVAT ED AND SHOULD BE USED IN CONJUNC TION WITH OTHER TESTSSU CH PT, APTT, AND PLATELE T COUNT. CHEST AP Observa Value Referen Units Interpr Notes Date tion ce etation Range TEXT Twin No No No No Jul 24 DIAGNOS [place] informa informa informa informa 2012 IS Regiona tion in tion in tion in tion in 10:26 BATTERY l source source source source AM Medical data data data data Center\ .br\[facility], [facility] y\.br\R ADIOLOG Y REPORT\ .br\PAT IENT: KEYANA COHEN : 980\.br \ [id number] UNIT #: [id number] 712\.br \PATIEN T TYPE: DEP ER PATIENT LOCATIO N: ER\.br\ ATTENDI NG: ADMIT DATE: 3\.br\O RDERING : DO MANE GELLER H DO DATE OF SERVICE : 3\.br\R EQUISTI ON #: [id number] 935\.br \ORDER( S): 36 CR/CHES T AP\.br\ CPT CODE: 53004\. br\Sign ed\.br\ REASON FOR EXAM: Pain.\. br\AP CHEST:\ .br\VINNY HNIQUE: Portabl e upright chest.\ .br\COM PARISON : Compare d to the williamu s study from 10/17/19 11.\.br \FINDIN GS: EKG leads are present . Poor inspira tion is seen. The heart is upper limits of\.br\ normal. The pulmona ry vascula rity is normal. No areas of consoli dation, effusio n, or free\.b r\air is seen.\. br\IMPR ESSION: \.br\1. No acute finding s.\.br\ 2. Limited inspira tion.\. br\3. Borderl ine cardiom egaly.\ .br\Jillian ctronic ally Signed By: DENNISE Alcala MD\.br\ 3 1550\.b r\D: VALERY LIU MD\.br\ 3 1026\.b r\T: RJD\.br \ 1301 Comprehensive metabolic 2000 panel in Serum or Plasma Observa Value Referen Units Interpr Notes Date tion ce etation Range Glucose 99 70 - mg/dL Normal No Jul 24 110 informa 2012 [Mass/v tion in 11:00 olume] source AM in data Serum or Plasma Urea 11 7 - 18 mg/dl Normal No Jul 24 nitroge informa 2012 n tion in 11:00 [Mass/v source AM olume] data in Serum or Plasma Sodium 143 136 - mEq/L Normal No Jul 24 [Moles/ 145 informa 2012 volume] tion in 11:00 in source AM Serum data or Plasma Potassi 4.0 3.5 - mEq/L Normal No Jul 24 um 5.1 informa 2012 [Moles/ tion in 11:00 volume] source AM in data Serum or Plasma Chlorid 105 98 - mEq/L Normal No Jul 24 e 107 informa 2012 [Moles/ tion in 11:00 volume] source AM in data Serum or Plasma Carbon 29 21 - 32 mEq/L Normal No Jul 24 dioxide informa 2012 , total tion in 11:00 source AM [Moles/ data volume] in Serum or Plasma Creatin 1.11 0.8 - mg/dl Normal No Jul 24 ine 1.3 informa 2012 [Mass/v tion in 11:00 olume] source AM in data Serum or Plasma GLOMERU > 60.00 No No Normal No Jul 24 LAR informa informa informa 2012 FILTRAT tion in tion in tion in 11:00 ION source source source AM RATE data data data EST ANION 13.0 8.0 - mEq/L Normal No Jul 24 GAP 20.0 informa 2013 tion in 11:00 source AM data Osmolal 284 275 - mmol/kg Normal No Jul 24 ity of 305 informa 2012 Serum tion in 11:00 or source AM Plasma data by calcula tion Calcium 9.6 8.7 - mg/dL Normal No Jul 24 10.2 informa 2012 [Mass/v tion in 11:00 olume] source AM in data Serum or Plasma Protein 8.4 6.4 - gm/dL High No Jul 24 8.2 informa 2012 [Mass/v tion in 11:00 olume] source AM in data Serum or Plasma Albumin 4.4 3.4 - gm/dL Normal No Jul 24 5.0 informa 2012 [Mass/v tion in 11:00 olume] source AM in data Serum or Plasma Bilirub 0.59 0 - 1.5 mg/dL Normal No Jul 24 in.tota informa 2012 l tion in 11:00 [Mass/v source AM olume] data in Serum or Plasma Asparta 29 15 - 37 U/L Normal No Jul 24 te informa 2012 aminotr tion in 11:00 ansfera source AM se data [Enzyma tic activit y/volum e] in Serum or Plasma Alanine 43 12 - 78 U/L Normal No Jul 24 informa 2012 aminotr tion in 11:00 ansfera source AM se data [Enzyma tic activit y/volum e] in Serum or Plasma Alkalin 109 50 - U/L Normal No Jul 24 e 136 informa 2012 phospha tion in 11:00 tase source AM [Enzyma data tic activit y/volum e] in Serum or Plasma CARDIAC ENZYMES Observa Value Referen Units Interpr Notes Date tion ce etation Range Myoglob 96 16 - 97 ng/ml Normal No Jul 24 in informa 2012 [Mass/v tion in 11:00 olume] source AM in data Serum or Plasma Troponi < 0.02 0 - ug/ml Normal No Jul 24 n 0.07 inform2012 I.cardi tion in 10:41 ac source AM [Mass/v data olume] in Serum or Plasma Creatin 204 34 - U/L Normal No Jul 24 e 262 informa 2012 kinase tion in 11:00 [Enzyma source AM tic data activit y/volum e] in Serum or Plasma Creatine kinase.MB [Mass/volume] in Serum or Plasma Observa Value Referen Units Interpr Notes Date tion ce etation Range Creatin 1.6 0 - 4 ng/mL Normal RELATIV Jul 24 e E 2013 kinase. INDEX= 11:03 MB 0.8 AM [Mass/v (NORMAL olume] =0-4.0% in ) Serum or Plasma CBC W Reflex Manual Differential panel in Blood Observa Value Referen Units Interpr Notes Date tion ce etation Range Leukocy 6.3 4.8 - x10_3/u Normal No Jul 24 mahesh 10.8 L informa 2012 [#/volu tion in 10:24 me] in source AM Blood data by Automat ed count Erythro 5.17 4.70 - x10_6/u Normal No Jul 24 cytes 6.10 L informa 2012 [#/volu tion in 10:24 me] in source AM Blood data by Automat ed count Hemoglo 16.0 14.0 - g/dL Normal No Jul 24 bin 18.0 informa 2012 [Mass/v tion in 10:24 olume] source AM in data Blood Hematoc 48.0 42 - 52 % Normal No Jul 24 rit informa 2012 [Volume tion in 10:24 source AM Fractio data n] of Blood by Automat ed count Erythro 92.8 80 - 94 fl Normal No Jul 24 cyte informa 2012 mean tion in 10:24 corpusc source AM ular data volume [Entiti c volume] by Automat ed count Erythro 30.9 27 - 31 pg Normal No Jul 24 cyte informa 2012 mean tion in 10:24 corpusc source AM ular data hemoglo bin [Entiti c mass] by Automat ed count Erythro 33.3 32 - 36 g/dL Normal No Jul 24 cyte informa 2013 mean tion in 10:24 corpusc source AM ular data hemoglo bin concent ration [Mass/v olume] by Automat ed count Erythro 13.4 11.5 - % Normal No Jul 24 cyte 15.5 informa 2013 distrib tion in 10:24 ution source AM width data [Ratio] by Automat ed count Platele 251 130 - x10_3/u Normal No Jul 24 ts 400 L informa 2012 [#/volu tion in 10:24 me] in source AM Blood data by Automat ed count Platele 10.1 9.2 - fl Normal No Jul 24 t mean 12.6 informa 2013 volume tion in 10:24 [Entiti source AM c data volume] in Blood by Automat ed count Neutrop 66.2 INTERP % Normal No Jul 24 hils/10 informa 2013 0 tion in 10:24 leukocy source AM mahesh in data Blood by Automat ed count Lymphoc 23.3 INTERP % Normal No Jul 24 ytes/10 informa 2013 0 tion in 10:24 leukocy source AM mahesh in data Blood by Automat ed count Monocyt 8.0 INTERP % Normal No Jul 24 es/100 informa 2013 leukocy tion in 10:24 mahesh in source AM Blood data by Automat ed count Eosinop 1.9 INTERP % Normal No Jul 24 hils/10 informa 2013 0 tion in 10:24 leukocy source AM mahesh in data Blood by Automat ed count Basophi 0.3 INTERP % Normal No Jul 24 ls/100 informa 2013 leukocy tion in 10:24 mahesh in source AM Blood data by Automat ed count Granulo 0.3 INTERP % Normal No Jul 24 cytes.i informa 2013 mmature tion in 10:24 /100 source AM leukocy data mahesh Neutrop 4.19 2.2 - x10_3/u Normal No Jul 24 hils 4.8 L informa 2012 [#/volu tion in 10:24 me] in source AM Blood data by Automat ed count Lymphoc 1.48 1.3 - x10_3/u Normal No Jul 24 ytes 2.9 L informa 2012 [#/volu tion in 10:24 me] in source AM Blood data by Automat ed count Monocyt 0.51 0.3 - x10_3/u Normal No Jul 24 es 1.0 L informa 2012 [#/volu tion in 10:24 me] in source AM Blood data by Automat ed count Eosinop 0.12 0 - 0.4 x10_3/u Normal No Jul 24 hils L informa 2012 [#/volu tion in 10:24 me] in source AM Blood data by Automat ed count Basophi 0.02 0 - 0.1 x10_3/u Normal No Jul 24 ls L informa 2012 [#/volu tion in 10:24 me] in source AM Blood data by Automat ed count Granulo 0.02 No x10_3/u Normal No Jul 24 cytes.i informa L informa 2012 mmature tion in tion in 10:24 source source AM data data Reagin Ab [Presence] in Unspecified specimen by VDRL Observa Value Referen Units Interpr Notes Date tion ce etation Range COLLECT N/A No No No No Mar 06 OR informa informa informa informa 2011 tion in tion in tion in tion in 8:00 AM source source source source data data data data ETHNICI W No No No No Mar 06 TY informa informa informa informa 2011 tion in tion in tion in tion in 8:00 AM source source source source data data data data PURPOSE ROUTINE No No No No Mar 06 OF informa informa informa informa 2011 EXAM tion in tion in tion in tion in 8:00 AM source source source source data data data data SPECIME BLOOD No No No No Mar 06 N informa informa informa informa 2011 SOURCE tion in tion in tion in tion in 8:00 AM source source source source data data data data CHART [id number] No No No No Mar 06 NUMBER informa informa informa informa 2011 tion in tion in tion in tion in 8:00 AM source source source source data data data data Reagin NON-SANDY No No No METHOD Mar 06 Ab CTIVE informa informa informa OF 2010 [Presen tion in tion in tion in ANALYSI 8:00 AM ce] in source source source S: Unspeci data data data VDRLNOR fied MAL specime RANGE: n by NON VDRL REACTIV E\.br\T his report contain s patient informa tion that must be protect ed in [facility] with the [employer] ce Portabi lity and Account ability Act. Reagin Ab [Presence] in Unspecified specimen by VDRL Observa Value Referen Units Interpr Notes Date tion ce etation Range COLLECT N/A No No No No Mar 06 OR informa informa informa informa 2011 tion in tion in tion in tion in 8:00 AM source source source source data data data data ETHNICI W No No No No Mar 06 TY informa informa informa informa 2011 tion in tion in tion in tion in 8:00 AM source source source source data data data data PURPOSE ROUTINE No No No No Mar 06 OF informa informa informa informa 2011 EXAM tion in tion in tion in tion in 8:00 AM source source source source data data data data SPECIME BLOOD No No No No Mar 06 N informa informa informa informa 2011 SOURCE tion in tion in tion in tion in 8:00 AM source source source source data data data data CHART [id number] No No No No Mar 06 NUMBER informa informa informa informa 2011 tion in tion in tion in tion in 8:00 AM source source source source data data data data Reagin Pending No No No \.br\Mar 06 Ab informa informa informa is 2010 [Presen tion in tion in tion in report 8:00 AM ce] in source source source contain Unspeci data data data s fied patient specime n by informa VDRL tion that must be protect ed in [facility] with the Health [employer] ce Portabi lity and Account ability Act. CHEST AP Observa Value Referen Units Interpr Notes Date tion ce etation Range TEXT Twin No No No No Oct 16 DIAGNOS [place] informa informa informa informa 2010 IS Regiona tion in tion in tion in tion in 5:50 PM BATTERY l source source source source Medical data data [facility] [place] yRADI[facility] OGY REPORTP ATIENT: KEYANA COHEN : 980ACCT #: [id number] UNIT #: [id number] ENT TYPE: REG ER PATIENT LOCATIO N: BLADIMIR DING: ADMIT DATE: 1ORDERI NG: Alison CLEMENS MD DATE OF SERVICE : 1REQUIS TION #: [id number] R(S): [id number] CR/CHES T APCPT CODE: [id number] CEDURE: X-RAY CHESTRE ASON FOR EXAM: Male, 30 years old. Right-s ided chest pain.TE CHNIQUE : Single AP portabl e view of the chest.C OMPARIS ON: None.FI NDINGS: There are hypoaer ation changes with atelect asis of both bases. There is nodemon strated parench ymal abnorma lity. There is no demonst rated pleural abnorma lity.No rmal heart and pericar dium.No rmal mediast inum and rica. Normal visuali zed pulmona ry arterie s. Normalv isualiz ed aortic arch and descend ing thoraci c aorta.N ormal visuali zed thoraci c spine. Normal visuali zed ribs, clavicl es, andshou lders.T here is no demonst rated abnorma lity of the visuali zed soft tissue structu resof the upper abdomen .IMPRES LOTTIE:Hy poaerat ion with atelect asis at both bases.N o active or acute cardiop ulmonar y disease .Electr onicall y Signed By: NOEMI VELASQUEZ MD10/16 1752D: ERICA VELASQUEZ MD10/16 175T: [id number]
--- OUTSIDE RECORDS SUMMARY | 2017-02-13 11:04 | External Medical Summary Rpt ---
Author Author BUCK Villarreal, BUCK Vaioni Organization [employer] Address Unknown Phone Unavailable [...] Medical data data data data Center\ .br\[facility], [facility] y\.br\R ADIOLOG Y REPORT\ .br\PAT IENT: KEYANA COHEN : 980\.br \ [id number] UNIT #: [id number] 712\.[id number] \PATIEN T TYPE: DEP ER PATIENT LOCATIO N: ER\.br\ ATTENDI NG: ADMIT DATE: 3\.br\O RDERING : DO MANE GELLER H DO DATE OF SERVICE : 3\.br\R EQUISTI ON #: [id number] 935\.br \ORDER( S): 36 CR/CHES T AP\.br\ CPT CODE: 85759\. br\Sign ed\.br\ REASON FOR EXAM: Pain.\. br\AP [...] source source data data data data CHART [id number] No No No No Mar 06 NUMBER [...] tion that must be protect ed in [facility] with the [facility] [employer] [place] lity [...] source source data data data data CHART [id number] No No No No Mar 06 NUMBER [...] tion that must be protect ed in [facility] with the [employer] ce Portabi lity and Account ability Act. CHEST AP Observa Value Referen Units Interpr Notes Date tion ce etation Range TEXT Twin No No No No Oct 16 DIAGNOS [place] informa informa informa informa 2010 IS Regiona tion in tion in tion in tion in 5:50 PM BATTERY l source source source source Medical data data data data CenterL [facility] yRADIOL OGY REPORTP ATIENT: KEYANA COHEN : 980ACCT #: [id number] UNIT #: [id number] ENT TYPE: REG ER PATIENT LOCATIO N: BLADIMIR DING: ADMIT DATE: 1ORDERI NG: Alison CLEMENS MD DATE OF SERVICE : 1REQUIS TION #: [id number] [id number] R(S): [id number] 30 CR/CHES T APCPT CODE: [id number] gnedPRO CEDURE: X-RAY CHESTRE ASON FOR EXAM: [...]
--- NOTE | 2017-02-13 12:28 | CONSULT NOTE ---
Standard Demographics Patient Demo Date of Consultation: 02/13/17 Referring Provider: Charlee Bradley MD Reason for Consultation: Chest pain PRIMARY DIAGNOSIS: Chest pain Problem list Problem list: 1. Tobacco use History of present illness: History of present illness: 36 yo WM seen in ER for evaluation of chest pain that onset at 9:30 AM today while at work (lifting boxes of cigarettes). 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 Initial troponin is normal and EKG is sinus without acute changes. Pt states the chest pain is left sided and is reproducible with palpation. Denies any recent fever, chills, nausea, vomiting or diaphoresis. Denies any rash or history of shingles. Cardiology consulted for evaluation in light of his tobacco use history. Pt relates an abnormal CXR several weeks ago for which he is to follow up with Dr. Bradley. Past Medical History: General: Hypertension No CVA Yes Seizures No TB No COPD No Asthma No Diabetes No Angina No CA No Hyperlipidemia No Cancer No MRSA No GB Disease No Past Surgical HX: Previous Surgery?N Allergies Coded Allergies: Penicillins (12/17/16) acetaminophen (From TYLENOL) (I-RASH 12/17/16) aspirin (SWELLING OF THROAT 12/17/16) Home medications: Reported Medications No Known Home Medications Current Medications: Current Medications Methocarbamol 0 .STK-MED ONE PO (DC) Methocarbamol 500 MG ONCE ONE PO (DC) Sodium Chloride 10 ML PRN PRN IV Immunization HX DT/Tetanus 1-4 Years Family history Family HX Family Hx Insignificant No Social Hx: Smoking HX Tobacco Yes Type Cigarettes Alcohol Alcohol: No Hx of Drug Use Drug Use? No Review of systems: Constitutional No: no symptoms reported. Respiratory No: no symptoms reported. Cardiovascular see HPI, chest pain Gastrointestinal/Abdominal No no symptoms reported Genitourinary No: no symptoms reported. Musculoskeletal see HPI. Neurological No: no symptoms reported. Exam: Admission Vital Signs: 1ST Vital Signs Result Date Time Pulse Ox 96 02/13 1017 B/P 126/93 02/13 1017 Temp 97.6 02/13 1017 Pulse 64 02/13 1017 Resp 18 02/13 1017 Last Vital Signs: Vital Signs Result Date Time Pulse Ox 95 02/13 1109 B/P 130/93 02/13 1109 Pulse 59 02/13 1109 Resp 14 02/13 1109 Temp 97.6 02/13 1017 Exam General appearance: alert, awake, no acute distress Neck: no carotid bruit, no JVD Cardiovascular: regular rate & rhythm, no murmur Respiratory: clear to auscultation, good air movement ABD: soft, no tenderness Extremities: moves all, no peripheral edema Neuro: alert, intact, oriented Laboratory data: Laboratory Tests 02/13/17 1138: Troponin I < 0.02 02/13/17 1025: B-Natriuretic Peptide < 5 02/13/17 1025: Sodium 140, Potassium 3.9, Chloride 106, Carbon Dioxide 27, BUN 12, Creatinine 1.0, Estimated Creat Clear 141, Estimated GFR (MDRD) 85, Glucose 92, Calcium 9.0 , Total Bilirubin 0.8, AST 50 H, ALT 74, Alkaline Phosphatase 105, Creatine Kinase 119, CK-MB (CK-2) Rel Index 1.0, CK and CKMB Interp 1.2, Troponin I < 0.02, Total Protein 7.6, Albumin 4.1, Globulin 3.5 H, Albumin/Globulin Ratio 1.2, D-Dimer < 100, WBC 5.6, RBC 4.93, Hgb 15.4, Hct 46.3, MCV 93.9, RDW 12.7, Plt Count 224, MPV 8.1, Gran % 62.1, Gran # 3.5, Lymphocytes % 27.9, Monocytes % 5.6, Eosinophils % 3.9, Basophils % 0.5, Lymphocytes # 1.6, Monocytes # 0.3, Eosinophils # 0.2, Basophils # 0.0, PUBS MCHC 33.3, MCH 31.2 Plan Assessment: 1. chest pain, atypical features and reproducible with palpation. Recommend repeating troponin and if normal then ok for discharge home for outpatient follow up within 48 hrs. 2. Tobacco use, cessation recommended Plan: Discussed with Dr. Adair. See above. at 0827
[2017-02-13] MEDS ORDERED: ROBAXIN-750750 MG PO (12:31)
--- NOTE | 2017-02-13 13:07 | RADIOLOGY REPORT PS360 ---
CHEST(2 VIEWS-NOT PORTABLE) HISTORY: CHEST PAIN ORDERING PHYSICIAN: Compa Cesar MD PATIENT AGE: 36 years COMPARISON: 12/17/2016 FINDINGS: The cardiomediastinal silhouette and pulmonary vascularity are within normal limits. No lobar consolidation or collapse is evident. There is a 7 mm nodule within the lingula. This was seen on the previous abdomen CT and is indeterminate.. No acute bony abnormalities. IMPRESSION: 1. No acute finding. 2. 7 mm lingular nodule. As mentioned in the abdomen CT report a 6 month follow to May 2017
[2017-02-13 13:25] VITALS: BP 136/84
== END 2017-02-13 13:27 | disposition still patient (30) ==
LOC: ER 10:16
PROVIDERS: Emergency Medicine
DX: R07.89 Other chest pain (principal); F17.210 Nicotine dependence, cigarettes, uncomplicated; Z88.6 Allergy status to analgesic agent; Z88.0 Allergy status to penicillin; Z88.8 Allergy status to other drugs, medicaments and biological substances